=== PATIENT | female | born 1990 | race African-American/Black ===

== ENCOUNTER 2017-10-28 09:00 | Emergency (ER) | payer OTHER ==
[~2017-10-28] VITALS: Ht 167.6 cm; Wt 63.5 kg
[~2017-10-28 09:00] MED LIST: ADVAIR 100-501 EACH INH; ALBUTEROL2.5 MG/32 IH; FLAGYL500 MG PO; GEODON20 MG PO; HYDROCODONE-AP1 EAC6 PO; LITHIUM CARBON150 MG PO; NORCO 5-325 TA1 EACH PO; PENICILLIN V P500 MG PO; PERCOCET 5-3251 EACH PO; PREDNISONE 20 M20 M1 PO; PROVENTIL HFA6.7 G1 INH; TRAZODONE 150150 M1 PO
[2017-10-28 09:40] LABS: URINE BILIRUBIN NEGATIVE (Negative); URINE BLOOD NEGATIVE (Negative); URINE CLARITY CLEAR; URINE COLOR YELLOW; URINE GLUCOSE-RANDOM* NEGATIVE (Negative); URINE KETONES NEGATIVE (Negative); URINE LEUKOCYTES NEGATIVE (Negative); URINE NITRITE NEGATIVE (Negative); URINE PROTEIN (DIPSTICK) NEGATIVE (Negative); URINE SPECIFIC GRAVITY 1.025 (1.005-1.035); URINE UROBILINOGEN 0.2 E.U./dl (0.2-1.0)
[2017-10-28 09:46] LABS: ABSOLUTE NEUTROPHILS 2.6 thou/uL (1.4-8.2); BASOPHILS 1.5 % (0.0-2.0); EOSINOPHILS 3.4 % (0.0-3.0); HEMATOCRIT 42.4 % (37.0-47.0); HEMOGLOBIN 13.5 gm/dL (12.0-15.0); MCH 27.1 pg (26.0-34.0); MCHC 31.9 g/dL (28.0-37.0); MONOCYTES 9.2 % (1.0-8.0); PLATELET COUNT 178 thou/uL (150-400); POLYS 48.9 % (36.0-66.0); RBC 4.99 mil/uL (4.20-5.00); RDW 13.8 % (10.5-14.5); WBC 5.2 thou/uL (4.0-11.0)
[2017-10-28 09:53] LABS: CALCIUM 9.1 mg/dL (8.5-10.1); CREATININE 0.7 mg/dL (0.6-1.0); POTASSIUM 4.3 mmol/L (3.5-5.1)
[2017-10-28 09:58] LABS: ALBUMIN 3.8 g/dL (3.4-5.0); TOTAL BILIRUBIN 0.3 mg/dL (<0.1-1.0); TOTAL PROTEIN 7.2 g/dL (6.4-8.2)
[2017-10-28] MEDS ORDERED: WELLBUTRIN SR150 MG PO (10:48)
[2017-10-28] MEDS ORDERED: DEXTROAMP-AMPHE20 MG PO (10:48)
[2017-10-28] MEDS ORDERED: OLANZAPINE5 MG PO (10:48)
[2017-10-28] MEDS ORDERED: NAPROSYN500 MG PO (12:00)
[2017-10-28] MEDS ORDERED: HYDROCODONE-AP1 EAC6 PO (12:00)
[2017-10-28] MEDS ORDERED: PHENERGAN 25 MG25 M1 PO (12:09)
== END 2017-10-28 12:50 | disposition home or self-care (01) ==
LOC: ER 09:00
PROVIDERS: Physician Assistant
DX: R10.2 Pelvic and perineal pain (principal); D25.9 Leiomyoma of uterus, unspecified; F31.9 Bipolar disorder, unspecified; F90.9 Attention-deficit hyperactivity disorder, unspecified type; J45.909 Unspecified asthma, uncomplicated; F17.210 Nicotine dependence, cigarettes, uncomplicated; Z88.8 Allergy status to other drugs, medicaments and biological substances